=== PATIENT | female | born 1985 | race Caucasian/White ===

== ENCOUNTER 2017-04-10 08:15 | Emergency (ER) | payer BC ==
--- NOTE | 2017-04-10 08:19 | UC ---
Abdominal Pain Female HPI - HPI Summary HPI Summary: 32 YEAR OLD PRESENTS WITH RLQ ABDOMINAL PAIN. I WILL SEND HER TO THE ER. - History of Current Complaint Chief Complaint: UCAbdominalPain Stated Complaint: ABD PAIN Time Seen by Provider: 04/10/17 08:18 Allergies/Adverse Reactions: Allergies Allergy/AdvReac Type Severity Reaction Status Date / Time No Known Allergies Allergy Verified 04/10/17 08:18 Home Medications: Home Medications ALPRAZolam TAB* [Xanax TAB*] 1 tab BID PRN 04/10/17 [History Confirmed 04/10/17] PMH/Surg Hx/FS Hx/Imm Hx Previously Healthy: Yes Review of Systems Constitutional: Negative Skin: Negative Eyes: Negative ENT: Negative Respiratory: Negative Cardiovascular: Negative Gastrointestinal: Abdominal Pain Genitourinary: Negative Motor: Negative Neurovascular: Negative Musculoskeletal: Negative Neurological: Negative Psychological: Negative All Other Systems Reviewed And Are Negative: Yes Physical Exam Triage Information Reviewed: Yes Eye Exam: Normal ENT Exam: Normal Dental Exam: Normal Neck exam: Normal Neck: Positive: 1 Respiratory Exam: Normal Cardiovascular Exam: Normal Abdomen Description: Positive: Guarding, Other: - RLQ Musculoskeletal Exam: Normal Neurological Exam: Normal Psychological Exam: Normal Skin Exam: Normal Abd Pain Female Course/Dx - Differential Dx/Diagnosis Provider Diagnoses: ABDOMINAL PAIN Discharge - Discharge Plan Condition: Stable Disposition: HOME Patient Education Materials: Acute Abdominal Pain (ED) Referrals: Non Staff,Doctor [Primary Care Provider] - Additional Instructions: PLEASE GO TO THE ER TO RULE OUT APPENDICITIS.
== END 2017-04-10 08:44 | disposition home or self-care (01) ==
LOC: UCCORT 08:15
DX: R10.31 Right lower quadrant pain (principal)
CPT/HCPCS: 99201; G0463

== ENCOUNTER 2018-08-09 10:43 | Emergency (ER) | payer BC ==
[2018-08-09 11:06] VITALS: BP 136/78
--- NOTE | 2018-08-09 11:35 | ED ---
Throat Pain/Nasal Congestion - History of Current Complaint Chief Complaint: UCRespiratory Time Seen by Provider: 08/09/18 11:11 - Allergies/Home Medications Allergies/Adverse Reactions: Allergies Allergy/AdvReac Type Severity Reaction Status Date / Time No Known Allergies Allergy Verified 08/09/18 11:00 Home Medications: Home Medications Dm/PE/Acetaminophen/Doxylamine [COLD & FLU MULTI-SYMPTOM (Liquid)] 1 mis PO BEDTIME PRN 08/09/18 [History Confirmed 08/09/18] Escitalopram Oxalate [Lexapro 20 mg] 20 mg PO DAILY 08/09/18 [History Confirmed 08/09/18] Omeprazole CAP* [Prilosec CAP* 20 MG] 20 mg PO DAILY 08/09/18 [History Confirmed 08/09/18] PMH/Surg Hx/FS Hx/Imm Hx - Cancer History Cancer Type, Location and Year: Cervical Cancer January 2014 - Surgical History Surgery Procedure, Year, and Place: Hysterectomy March 2014 Infectious Disease History: No Infectious Disease History: Denies: Traveled Outside the [place] in Last 30 Days - Social History Alcohol Use: Occasionally Alcohol Amount: 1-2/weeks Substance Use Type: Reports: None Smoking Status (MU): Heavy Every Day Tobacco Smoker Type: Cigarettes Amount Used/How Often: 1/2 PPD Review of Systems Positive: Sore Throat, Ear Ache All Other Systems Reviewed And Are Negative: Yes Physical Exam Vital Signs On Initial Exam: Initial Vitals Temp Pulse Resp BP Pulse Ox 98.2 F 81 16 136/78 98 08/09/18 11:02 08/09/18 11:02 08/09/18 11:02 08/09/18 11:02 08/09/18 11:02 Diagnostics - Vital Signs Vital Signs Temp Pulse Resp BP Pulse Ox 08/09/18 11:02 98.2 F 81 16 136/78 98 - Laboratory Lab Results: Lab Results 08/09/18 Range/Units 11:15 Group A Strep Rapid Negative (Negative) Lab Statement: Any lab studies that have been ordered have been reviewed, and results considered in the medical decision making process. EENT Course/Dx - Course Course Of Treatment: 33 yr old female with OM. Rx Cefdinir. Rapid strep neg. - Diagnoses Provider Diagnoses: Otitis media, Hypertension Discharge - Sign-Out/Discharge Documenting (check all that apply): Patient Departure All imaging exams completed and their final reports reviewed: No Studies - Discharge Plan Condition: Good Disposition: HOME Prescriptions: Cefdinir [Cefdinir 300 MG CAP] 300 mg PO BID #20 capsule Patient Education Materials: Ear Infection (ED), Hypertension (ED) Referrals: No Primary Care Phys,NOPCP [Primary Care Provider] - [facility] [Outside] - 2 Days - Billing Disposition and Condition Condition: GOOD Disposition: Home
== END 2018-08-09 11:40 | disposition home or self-care (01) ==
LOC: UCCORT 10:43
DX: H66.90 Otitis media, unspecified, unspecified ear (principal); I10 Essential (primary) hypertension; F17.210 Nicotine dependence, cigarettes, uncomplicated
CPT/HCPCS: 87651; 99212; G0463

== ENCOUNTER 2018-08-10 08:43 | Emergency (ER) | payer BC ==
[2018-08-10 08:54] VITALS: BP 130/84
--- NOTE | 2018-08-10 09:07 | UC ---
Eye Complaint HPI - HPI Summary HPI Summary: bilateral eye redness x 1 day bilateral eye discharge , no eye pain , no change in vision no fever, no headaches, + cold symptoms - History of Current Complaint Chief Complaint: UCEye Stated Complaint: BILATERAL EYE COMPLAINT Time Seen by Provider: 08/10/18 08:58 Hx Obtained From: Patient ?: No Onset/Duration: Gradual Onset, Lasting Days - 1, Still Present Timing: Constant Severity Initially: Moderate Severity Currently: Moderate Pain Intensity: 0 Location of Injury: Conjunctiva Aggravating Factor(s): Blinking Alleviating Factor(s): Nothing Associated Signs And Symptoms: Positive: Drainage (Purulent) - bilateral. Negative: Photophobia - Allergies/Home Medications Allergies/Adverse Reactions: Allergies Allergy/AdvReac Type Severity Reaction Status Date / Time No Known Allergies Allergy Verified 08/10/18 08:52 PMH/Surg Hx/FS Hx/Imm Hx - Additional Past Medical History Additional PMH: cervical cancer Cancer History: Cervical Cancer - Surgical History Surgical History: Yes Surgery Procedure, Year, and Place: Hysterectomy March 2014 - Family History Known Family History: Negative: Blood Disorder - Social History Alcohol Use: Occasionally Alcohol Amount: 1-2/weeks Substance Use Type: None Smoking Status (MU): Heavy Every Day Tobacco Smoker Type: Cigarettes Amount Used/How Often: 1/2 PPD Review of Systems All Other Systems Reviewed And Are Negative: Yes Constitutional: Positive: Negative Skin: Positive: Negative Eyes: Positive: Drainage, Eye Redness ENT: Positive: Ear Ache Respiratory: Positive: Negative Cardiovascular: Positive: Negative Is Patient Immunocompromised?: No Physical Exam Triage Information Reviewed: Yes Appearance: Well-Appearing, No Pain Distress, Well-Nourished Vital Signs: Initial Vital Signs Temp 97.7 F 08/10/18 08:51 Pulse 76 08/10/18 08:51 Resp 16 08/10/18 08:51 BP 130/84 08/10/18 08:51 Pulse Ox 98 08/10/18 08:51 Vital Signs Reviewed: Yes Eye Exam: Normal Eyes: Positive: Conjunctiva Inflamed - bilateral, Discharge - bilateral ENT Exam: Normal ENT: Positive: Normal ENT inspection, Pharynx normal, Nasal congestion, TMs normal. Negative: Nasal drainage Neck: Positive: Supple, Nontender, No Lymphadenopathy Respiratory: Positive: Chest non-tender, Lungs clear, Normal breath sounds Cardiovascular: Positive: RRR, No Murmur, Pulses Normal Skin Exam: Normal Eye Complaint Course/Dx - Differential Dx/Diagnosis Provider Diagnosis: Conjunctivitis Discharge - Sign-Out/Discharge Documenting (check all that apply): Patient Departure All imaging exams completed and their final reports reviewed: No Studies - Discharge Plan Condition: Stable Disposition: HOME Prescriptions: Tobramycin 0.3% OPHTH.МАРИНА* 1 drop BOTH EYES Q4H #1 btl Patient Education Materials: Conjunctivitis (ED) Referrals: No Primary Care Phys,NOPCP [Primary Care Provider] - If Needed - Billing Disposition and Condition Condition: STABLE Disposition: Home
== END 2018-08-10 09:18 | disposition home or self-care (01) ==
LOC: UCCORT 08:43
DX: H10.9 Unspecified conjunctivitis (principal); F17.210 Nicotine dependence, cigarettes, uncomplicated
CPT/HCPCS: 99212; G0463

== ENCOUNTER 2018-09-24 10:33 | Emergency (ER) | payer BC ==
[2018-09-24 10:46] VITALS: BP 134/86
--- NOTE | 2018-09-24 10:53 | UC ---
Abdominal Pain Female HPI - HPI Summary HPI Summary: Patient presents to urgent care for evaluation of pain in her left side. Patient states she's had for approximately 2 weeks. Patient states pain is a deep ache. Worse with palpation or movement. No shortness of breath. Patient denies any trauma. Patient denies any blood in her P. No hematuria or dysuria. Patient states she was concerned that this is related to her kidney wanted to make sure she didn't have a UTI before the "storm" patient without any fevers or chills. Patient took Motrin this morning with improvement. No vaginal discharge, itching, rash. Pt's medications reviewed this visit - History of Current Complaint Chief Complaint: UCGU Stated Complaint: URINARY Time Seen by Provider: 09/24/18 10:52 Hx Obtained From: Patient Onset/Duration: Gradual Onset Severity Initially: Mild Severity Currently: Mild Pain Intensity: 0 Allergies/Adverse Reactions: Allergies Allergy/AdvReac Type Severity Reaction Status Date / Time No Known Allergies Allergy Verified 09/24/18 10:46 PMH/Surg Hx/FS Hx/Imm Hx Previously Healthy: Yes - Surgical History Surgical History: Yes Surgery Procedure, Year, and Place: Hysterectomy March 2014 - Family History Known Family History: Positive: Non-Contributory Negative: Blood Disorder - Social History Occupation: Employed Full-time Lives: With Family Alcohol Use: Weekly Alcohol Amount: 1-2/weeks Substance Use Type: None Smoking Status (MU): Heavy Every Day Tobacco Smoker Type: Cigarettes Amount Used/How Often: 1/2 PPD Review of Systems All Other Systems Reviewed And Are Negative: Yes Constitutional: Positive: Negative Skin: Positive: Negative Eyes: Positive: Negative ENT: Positive: Negative Respiratory: Positive: Other - left ribs Cardiovascular: Positive: Negative Motor: Positive: Negative Is Patient Immunocompromised?: No Physical Exam - Summary Physical Exam Summary: Vital Signs Reviewed: Yes A+Ox3, no distress Eyes: Conjunctiva Clear, HUNTER. EOM intact and full ENT: Hearing grossly normal TM x 2 clear, mmoist, uvula midline, no exudate, no erythema Neck: Positive: Supple Respiratory: Positive: No respiratory distress, No accessory muscle use + CTA throughout no w/r + point tenderness left lower rib at midaxillary line No crepitus Cardiovascular: RRR nl s1, s2 no m/r CBT <2 sec abd soft + BS nt/nd no guarding, no distension, no CVA Musculoskeletal Exam: PORRAS x 4 without difficulty Strength Intact, ROM Intact Neurological: Positive: Alert, + sensation throughout Psychological: Positive: Normal Response To Family Skin: Positive: no rash, pt with small point ecchymosis - states from "pushing it" Triage Information Reviewed: Yes Vital Signs: Initial Vital Signs Temp 97.2 F 09/24/18 10:43 Pulse 91 09/24/18 10:43 Resp 18 09/24/18 10:43 BP 134/86 09/24/18 10:43 Pulse Ox 100 09/24/18 10:43 Diagnostics - Radiology No standard instances Radiology Interpretation Completed By: Radiologist - Patient Name: GUNJAN WILLETT Medical Record#: [id number] Ordering Physician: Gunjan Lara MD Acct.#: [id number] : 1985 Age: 33 Sex: F Location: [facility] Exam Date: 09/24/18 1106 ADM Status: REG ER Order Information: CHEST PA & LAT 2 VWS Accession Number: [id number] CPT: 29612 INDICATION: Pain left first rib area, cough. COMPARISON: There are no relevant prior studies available for comparison. TECHNIQUE: Dual-energy PA and lateral views of the chest were obtained. FINDINGS: The heart is within normal limits in size. Mediastinal and hilar contours appear within normal limits. The lungs are clear. No pleural effusion or pneumothorax is seen. IMPRESSION: NO EVIDENCE FOR ACTIVE CARDIOPULMONARY DISEASE. < Electronically signed by Doni Barber MD in OV> 09/24/18 112 Dictated By: Doni Barber MD Dictated Date/Time: 09/24/18 112 Transcribed Date/Time: 112 Copy to: CC:Gunjan Lara MD; No Primary Care Phys,NOPCP Imaging - [facility] Imaging - [facility] [address] [place] [id number] ph ([phone]) ph ([phone]) ) This report is only to be considered final once signed by the Provider(s) as displayed in the "<Electronically Signed by >" field (s). Absence of a signature indicates the report is in a draft status and still needs to be finalized. In the event this document was created by someone other than the signing Provider, the individual initiating the document will be listed in the "Entered by:" or "Dictated by:" plasencia. 1 of 1 Abd Pain Female Course/Dx - Course Course Of Treatment: Patient presents to urgent care to be checked for this intermittent left lower lip pain she's had for 2 weeks. Patient states his it was constant at times it gets worse. Patient states it's worse with direct palpation movement and coughing. Patient without any shortness of breath. Patient has any trauma. Patient states she wanted make sure was a kidney infection because we are predicted to have bad weather. Patient without any urine her symptoms. Patient without hematuria. Patient's urine was completely normal. Patient with point tenderness left midaxillary line pain. No crepitus. We'll check a chest x-ray make sure there is no pleural effusion. Anticipate we'll discharge with muscle skeletal pain. Motrin/time. Heat and stretch. Patient comfortable agreement with plan. - Differential Dx/Diagnosis Provider Diagnosis: Musculoskeletal pain Discharge - Sign-Out/Discharge Documenting (check all that apply): Patient Departure All imaging exams completed and their final reports reviewed: Yes - Discharge Plan Condition: Stable Disposition: HOME Patient Education Materials: Musculoskeletal Pain (ED) Referrals: No Primary Care Phys,NOPCP [Primary Care Provider] - Additional Instructions: - Okay to alternate ibuprofen (Advil, Motrin) 600mg and Tylenol (Tylenol) every 3hours as needed for pain. Take with food. Do NOT take for more than 4-5 days. - apply heat to the sore area for 15 minutes, 3-4 times a day. once warm, gentle stretching - take deep, slow breaths several times a day -Arrange a follow-up appointment with your doctor later this week or early next week - call your doctor or return with questions or concerns - Billing Disposition and Condition Condition: STABLE Disposition: Home
== END 2018-09-24 11:41 | disposition home or self-care (01) ==
LOC: UCCORT 10:33
DX: M79.18 Myalgia, other site (principal); F17.210 Nicotine dependence, cigarettes, uncomplicated
CPT/HCPCS: 71046; 81003; 99211; G0463